=== PATIENT | male | born 1950 | race Caucasian/White ===

== ENCOUNTER → 2017-01-26 | Outpatient (CLI) | payer OTHER, BC ==
[~2017-01-26] MED LIST: CLX20 PO; PRAV20TA PO
--- NOTE | 2017-01-26 09:53 | DIAGNOSTIC IMAGING REPORT ---
RENAL ULTRASOUND CLINICAL HISTORY: Renal cyst. COMPARISON STUDY: None TECHNIQUE: Sonography of the kidneys and the urinary bladder was performed. FINDINGS: The right kidney measures 10 x 6.2 x 7.1 cm and the left measures 9.9 x 5.5 x 6.4 cm. There is no hydronephrosis. There is a 2.9 cm anechoic lesion within the upper aspect of the right renal sinus consistent with a cyst. Renal echogenicity, size and cortical thickness are normal. The prostate is moderately enlarged. Note is made of moderate bladder wall thickening which is accentuated by underdistention. The left ureteral jet was not visualized. IMPRESSION: 1. 2.9 cm right renal cyst. 2. No hydronephrosis. 3. Moderate bladder wall thickening which is accentuated by underdistention. Moderate enlargement of the prostate gland. Electronically signed by: Lev Partida M.D. 01/26/2017 9:52 AM Dictated Date/Time: 01/26/2017 9:50 AM
== END | disposition home or self-care (01) ==
LOC: C.ULTR 09:04
PROVIDERS: ATTEND Urology
DX: N28.1 Cyst of kidney, acquired (principal); N32.89 Other specified disorders of bladder; N40.0 Benign prostatic hyperplasia without lower urinary tract symptoms

== ENCOUNTER 2017-04-20 11:09 | Emergency (ER) | payer OTHER, BC ==
[~2017-04-20] VITALS: Ht 175.3 cm; Wt 114.1 kg
[2017-04-20 11:19] VITALS: TEMP 36.7
[2017-04-20] MEDS ORDERED: DIAZEPAM INJ 5 MG/ML 2 ML CARP IV STA (11:56)
[2017-04-20 12:07] VITALS: O2SAT 98
[2017-04-20 12:08] LABS: BASO % 0.5 %; BASO ABS # 0.03 K/uL (0-0.2); EOS % 0.7 %; EOS ABS # 0.04 K/uL (0-0.5); HEMATOCRIT 45.2 % (42-52); HEMOGLOBIN 16.2 g/dL (14.0-18.0); IG# 0.01 K/uL (0.00-0.02); LYMPH % 19.2 %; LYMPH ABS # 1.13 K/uL (1.2-3.4); MEAN CELL VOLUME 89.2 fL (80-100); MEAN CORPUSCULAR HGB CONC 35.8 g/dl (32-36); MEAN PLATELET VOLUME 11.5 fL (7.4-10.4); MONO % 6.3 %; MONO ABS # 0.37 K/uL (0.11-0.59); NEUT % 73.1 %; NEUT ABS # 4.32 K/uL (1.4-6.5); PLATELET COUNT 206 K/uL (130-400); RED CELL DISTRIBUTION WIDTH CV 12.7 % (11.5-14.5); RED CELL DISTRIBUTION WIDTH SD 41.2 fL (36.4-46.3)
[2017-04-20 12:09] VITALS: Ht 175.3 cm; Wt 114.1 kg
[2017-04-20 12:24] LABS: ALBUMIN 4.2 gm/dl (3.4-5.0); ALT/SGPT 34 U/L (12-78); AST/SGOT 16 U/L (15-37); BLOOD UREA NITROGEN 15 mg/dl (7-18); CALCIUM 8.7 mg/dl (8.5-10.1); CARBON DIOXIDE 27 mmol/L (21-32); CREATININE 1.17 mg/dl (0.60-1.40); GLUCOSE 130 mg/dl (70-99); POTASSIUM 3.9 mmol/L (3.5-5.1); PTT PATIENT 32.2 SECONDS (21.0-31.0); SODIUM 137 mmol/L (136-145)
--- NOTE | 2017-04-20 12:25 | EMERGENCY ROOM VISIT NOTE ---
History Report prepared by Sameera: Kevin Luna Under the Supervision of: Dr. Stefan Encarnacion D.O. First contact with patient: 11:48 Chief Complaint: HYPERTENSION Stated Complaint: HIGH BLOOD PRESSURE, DIZZINESS History of Present Illness The patient is a 66 year old male who presents to the Emergency Room with complaints of intermittent dizziness that began this morning. He has a past medical history of hypertension, hyperlipidemia, and anxiety. When the patient woke up this morning, he states that the room was spinning. He tried to lie back down, and about 15 minutes later, his dizziness resolved. He then got the newspaper and sat back down to read it. He then had another episode of dizziness as well. This has never happened to him before. He called his sister who brought over her blood pressure monitor and found his pressures to be elevated. He then presented to the ER. He is currently mildly dizzy and feels "spacey." He denies any headaches, feelings of off balance, chest pains, or changes to his chronic ear ringing. He took his normal medications last night. Source of History: patient Onset: this morning Position: other (Global) Symptom Intensity: moderate Quality: other (Dizziness) Timing: intermittent Associated Symptoms: + nausea, No headache, No chest pain Review of Systems See HPI for pertinent positives & negatives. A total of 10 systems reviewed and were otherwise negative. Past Medical & Surgical Medical Problems: (1) History of orthopedic surgery (2) Hypertension Family History Diabetes mellitus Hypertension Social History Smoking Status: Never Smoker Alcohol Use: occasionally Marital Status: Housing Status: lives with significant other Occupation Status: retired Current/Historical Medications Scheduled Aspirin (Aspirin Ec), 81 MG PO DAILY Citalopram (Citalopram Hydrobromide), 40 MG PO DAILY Lisinopril (Prinivil), 10 MG PO DAILY Multiple Vitamin (Multi Vitamin), 1 TAB PO DAILY Pravastatin Sod (Pravastatin Sodium), 40 MG PO DAILY Scheduled PRN Meclizine Hcl (Meclizine Hcl), 1 TAB PO TID PRN for Dizziness or Vertigo Allergies Coded Allergies: No Known Allergies (Unverified , 04/20/17) Physical Exam Vital Signs Date Time Temp Pulse Resp B/P (MAP) Pulse Ox O2 Delivery O2 Flow Rate FiO2 04/20/17 13:52 55 16 143/89 93 2/26/18 13:00 56 16 174/92 97 04/20/17 12:50 63 16 155/95 96 Nasal Cannula 2.0 04/20/17 12:07 98 Nasal Cannula 2.0 04/20/17 12:04 56 16 164/96 94 Room Air 04/20/17 12:02 56 04/20/17 11:30 95 Room Air 04/20/17 11:30 54 16 181/113 95 Room Air 04/20/17 11:19 36.7 57 18 188/109 97 Room Air Physical Exam GENERAL: Patient is awake, alert, and in no acute distress. Patient is resting comfortably and showing no signs of anxiety EYES: The conjunctivae are clear. The pupils are round and reactive. EARS, NOSE, MOUTH AND THROAT: The nose is without any evidence of any deformity. Mucous membranes are moist tongue is midline. TM's clear bilaterally. NECK: The neck is nontender and supple. RESPIRATORY: Normal respiratory effort is noted there is no evidence of wheezing rhonchi or rales CARDIOVASCULAR: Regular rate and rhythm noted there no murmurs rubs or gallops normal S1 normal S2 GASTROINTESTINAL: The abdomen is soft. Bowel sounds are present in all quadrants. Abdomen is nontender MUSCULOSKELETAL/EXTREMITIES: There is no evidence of gross deformity full range of motion is noted in the hips and shoulders SKIN: There is no obvious evidence of any rash. There are no petechiae, pallor or cyanosis noted. NEUROLOGIC: Patient is awake alert and oriented x3 strength is symmetric patellar reflexes are 2+ bilaterally. No nystagmus. Medical Decision & Procedures ER Provider Diagnostic Interpretation: Radiology results as stated below per my review and radiologist interpretation: HEAD WITHOUT CONTRAST (CT) CLINICAL HISTORY: 66 years-old Male presenting with EVALUATE ALTERED MENTAL STATUS/WEAKNESS. TECHNIQUE: Multidetector CT imaging of the head was performed without the use of intravenous contrast. IV contrast: None. A dose lowering technique was used consistent with the principles of ALARA (as low as reasonably achievable). COMPARISON: None. CT DOSE (mGy.cm): The estimated cumulative dose is 823.94 mGycm. FINDINGS: Cleaning Laborer topogram: Unremarkable. Ventricles and sulci normal in size. Brain parenchyma normal in appearance with preserved packer-white differentiation. No mass effect or midline shift. No hemorrhage or acute territorial infarct. No extra-axial fluid collection. Paranasal sinuses and mastoid air cells clear. Calvarium intact. IMPRESSION: 1. No acute intracranial abnormality. Electronically signed by: Adam Grace M.D. 04/20/2017 12:40 PM Dictated Date/Time: 04/20/2017 12:37 PM CHEST ONE VIEW PORTABLE CLINICAL HISTORY: 66 years-old Male presenting with EVALUATE ALTERED MENTAL STATUS/WEAKNESS. TECHNIQUE: Portable upright AP view of the chest was obtained. COMPARISON: None. FINDINGS: Cardiomediastinal silhouette normal. Lungs and pleural spaces clear. Osseous structures normal. Upper abdomen normal. IMPRESSION: 1. No acute cardiopulmonary disease. Electronically signed by: Adam Grace M.D. 04/20/2017 12:46 PM Dictated Date/Time: 04/20/2017 12:45 PM Laboratory Results 04/20/17 11:45 Red Blood Count 5.07, Mean Corpuscular Volume 89.2, Mean Corpuscular Hemoglobin 32.0, Mean Corpuscular Hemoglobin Concent 35.8, Mean Platelet Volume 11.5, Neutrophils (%) (Auto) 73.1, Lymphocytes (%) (Auto) 19.2, Monocytes (%) (Auto) 6.3, Eosinophils (%) (Auto) 0.7, Basophils (%) (Auto) 0.5, Neutrophils # (Auto) 4.32, Lymphocytes # (Auto) 1.13, Monocytes # (Auto) 0.37, Eosinophils # (Auto) 0.04, Basophils # (Auto) 0.03 04/20/17 11:45 Test 04/20/17 11:45 White Blood Count 5.90 K/uL (4.8-10.8) Red Blood Count 5.07 M/uL (4.7-6.1) Hemoglobin 16.2 g/dL (14.0-18.0) Hematocrit 45.2 % (42-52) Mean Corpuscular Volume 89.2 fL (80-100) Mean Corpuscular Hemoglobin 32.0 pg (25-34) Mean Corpuscular Hemoglobin Concent 35.8 g/dl (32-36) Platelet Count 206 K/uL (130-400) Mean Platelet Volume 11.5 fL (7.4-10.4) Neutrophils (%) (Auto) 73.1 % Lymphocytes (%) (Auto) 19.2 % Monocytes (%) (Auto) 6.3 % Eosinophils (%) (Auto) 0.7 % Basophils (%) (Auto) 0.5 % Neutrophils # (Auto) 4.32 K/uL (1.4-6.5) Lymphocytes # (Auto) 1.13 K/uL (1.2-3.4) Monocytes # (Auto) 0.37 K/uL (0.11-0.59) Eosinophils # (Auto) 0.04 K/uL (0-0.5) Basophils # (Auto) 0.03 K/uL (0-0.2) RDW Standard Deviation 41.2 fL (36.4-46.3) RDW Coefficient of Variation 12.7 % (11.5-14.5) Immature Granulocyte % (Auto) 0.2 % Immature Granulocyte # (Auto) 0.01 K/uL (0.00-0.02) Prothrombin Time 10.7 SECONDS (9.0-12.0) Prothromb Time International Ratio 1.0 (0.9-1.1) Activated Partial Thromboplast Time 32.2 SECONDS (21.0-31.0) Partial Thromboplastin Ratio 1.2 Anion Gap 8.0 mmol/L (3-11) Est Creatinine Clear Calc Drug Dose 77.4 ml/min Estimated GFR () 74.9 Estimated GFR (Non- 64.6 BUN/Creatinine Ratio 12.5 (10-20) Calcium Level 8.7 mg/dl (8.5-10.1) Magnesium Level 2.4 mg/dl (1.8-2.4) Total Bilirubin 0.6 mg/dl (0.2-1) Direct Bilirubin 0.2 mg/dl (0-0.2) Aspartate Amino Transf (AST/SGOT) 16 U/L (15-37) Alanine Aminotransferase (ALT/SGPT) 34 U/L (12-78) Alkaline Phosphatase 80 U/L (45-117) Troponin I < 0.015 ng/ml (0-0.045) Total Protein 7.6 gm/dl (6.4-8.2) Albumin 4.2 gm/dl (3.4-5.0) Thyroid Stimulating Hormone (TSH) 1.990 uIu/ml (0.300-4.500) Laboratory results per my review. Medications Administered Medications (Trade) Dose Ordered Sig/Stuart Route Start Time Stop Time Status Last Admin Dose Admin Diazepam (Valium Inj) 2.5 mg ONE STAT IV 04/20/17 11:56 04/20/17 11:57 DC 04/20/17 12:16 2.5 MG ECG Per My Interpretation Indication: nausea, other (Dizziness) Rate (beats per minute): 58 Rhythm: sinus bradycardia Findings: 1st degree AV block, T-wave inversion (high lateral), other (No PVC) Comparison ECG Date: 04/20/13 Change: Lateral changes are new ED Course 1148: The patient was evaluated in room A12B. A complete history and physical examination were performed. 1156: Ordered Valium Inj 2.5 mg IV 1343: Upon reevaluation, the patient is resting. I discussed the results and treatment plan with him. He verbalized agreement of the treatment plan. He was discharged home. Medical Decision Differential diagnosis: Etiologies such as benign positional vertigo, dehydration, hypovolemia, anemia, tumor, infection, hypoglycemia, electrolyte abnormalities, cardiac sources, intracerebral event, toxicologic, neurologic, as well as others were entertained. Nursing notes reviewed. The patient is a 66-year-old male who presented to the emergency department for evaluation of dizziness and vertigo. The patient describes waking up today with dizziness. He also has been noticing that his blood pressure has been higher than usual. The patient did not have any focal neurologic deficits. He was treated with Valium in the emergency department with some improvement of his symptoms. I discussed the patient's laboratory and radiographic studies with him. I also recommend that he discussed possibility with his family doctor for further study such as MRI or a referral to an ENT doctor if symptoms do not improve. He was also very concerned about the elevation in his blood pressure. He was reevaluated multiple times and his blood pressure slowly improved. I do think it is possible that this could be related to his vertigo but I encouraged him to follow-up with his doctor as well for blood pressure check when symptoms have improved to determine if he needs changes in his blood pressure medication. He is also encouraged to return to the emergency department immediately if symptoms change or worsen or the need arises. Specifically I encouraged him to return if he develops any symptoms that could be consistent with stroke. Medication Reconcilliation Current Medication List: was personally reviewed by me Blood Pressure Screening Patient's blood pressure: Elevated blood pressure Blood pressure disposition: Referred to PCP Impression Primary Impression: Vertigo Additional Impression: HTN (hypertension) Scribe Attestation The scribe's documentation has been prepared under my direction and personally reviewed by me in its entirety. I confirm that the note above accurately reflects all work, treatment, procedures, and medical decision making performed by me. Departure Information Dispostion Home / Self-Care Prescriptions Meclizine Hcl (MECLIZINE HCL) 25 Mg Tab 1 TAB PO TID Y for Dizziness or Vertigo for 10 Days, #30 TAB Prov: Stefan Encarnaicon, DO 04/20/17 Referrals Octavia Luis M.D. (MEDICAL) (PCP) Forms HOME CARE DOCUMENTATION FORM, IMPORTANT VISIT INFORMATION, WORK / SCHOOL INSTRUCTIONS Patient Instructions ED Dizziness [facility], [facility] Additional Instructions Call your family doctor to schedule a follow-up appointment. Rest and avoid any strenuous activity. Continue all medications as prescribed. Return to the emergency department if symptoms change worsen or the need arises. Discussed the possibility with your primary care physician that you may need further studies such as an MRI of the brain or possibly a referral to an ear nose and throat physician to further evaluate the causing her dizziness. Problem Qualifiers Additional Impression: HTN (hypertension) Hypertension type: unspecified Qualified Codes: I10 - Essential (primary) hypertension
[2017-04-20 12:34] LABS: ALKALINE PHOSPHATASE 80 U/L (45-117); TOTAL PROTEIN 7.6 gm/dl (6.4-8.2)
[2017-04-20] MEDS ORDERED: ASPI81TA28 PO (12:38)
[2017-04-20] MEDS ORDERED: CLX40 PO (12:38)
[2017-04-20] MEDS ORDERED: PRVC40 PO (12:38)
[2017-04-20] MEDS ORDERED: LISI10TA PO (12:38)
[2017-04-20] MEDS ORDERED: MULT-1027 PO (12:38)
--- NOTE | 2017-04-20 12:42 | DIAGNOSTIC IMAGING REPORT ---
HEAD WITHOUT CONTRAST (CT) CLINICAL HISTORY: 66 years-old Male presenting with EVALUATE ALTERED MENTAL STATUS/WEAKNESS. TECHNIQUE: Multidetector CT imaging of the head was performed without the use of intravenous contrast. IV contrast: None. A dose lowering technique was used consistent with the principles of ALARA (as low as reasonably achievable). COMPARISON: None. CT DOSE (mGy.cm): The estimated cumulative dose is 823.94 mGycm. FINDINGS: [employer] Photo Operator topogram: Unremarkable. Ventricles and sulci normal in size. Brain parenchyma normal in appearance with preserved packer-white differentiation. No mass effect or midline shift. No hemorrhage or acute territorial infarct. No extra-axial fluid collection. Paranasal sinuses and mastoid air cells clear. Calvarium intact. IMPRESSION: 1. No acute intracranial abnormality. Electronically signed by: Adam Grace M.D. 04/20/2017 12:40 PM Dictated Date/Time: 04/20/2017 12:37 PM
--- NOTE | 2017-04-20 12:47 | DIAGNOSTIC IMAGING REPORT ---
CHEST ONE VIEW PORTABLE CLINICAL HISTORY: 66 years-old Male presenting with EVALUATE ALTERED MENTAL STATUS/WEAKNESS. TECHNIQUE: Portable upright AP view of the chest was obtained. COMPARISON: None. FINDINGS: Cardiomediastinal silhouette normal. Lungs and pleural spaces clear. Osseous structures normal. Upper abdomen normal. IMPRESSION: 1. No acute cardiopulmonary disease. Electronically signed by: Adam Grace M.D. 04/20/2017 12:46 PM Dictated Date/Time: 04/20/2017 12:45 PM
[2017-04-20] MEDS ORDERED: MECL1TAB42 PO (13:37)
[2017-04-20 13:52] VITALS: BP 143/89; PULSE 55; O2SAT 93
== END 2017-04-20 13:52 | disposition home or self-care (01) ==
LOC: C.EDB 11:11 → C.EDA 13:52
DX: R42 Dizziness and giddiness (principal); I10 Essential (primary) hypertension; Z79.82 Long term (current) use of aspirin; Z83.3 Family history of diabetes mellitus; Z82.49 Family history of ischemic heart disease and other diseases of the circulatory system